=== PATIENT | female | born 1940 | race Caucasian/White ===

== ENCOUNTER → 2018-03-19 08:44 | Outpatient (CLI) | payer MEDICARE, BC, SELFPAY | PROVIDERS: Visit Provider Internal Medicine Cardiovascular Disease | DX: I35.8 Other nonrheumatic aortic valve disorders (principal); E78.5 Hyperlipidemia, unspecified | CPT/HCPCS: 93306 ==

== ENCOUNTER → 2019-05-07 | Outpatient (CLI) | payer MEDICARE, BC, SELFPAY ==
[2018-03-11 09:06] VITALS: BMI 26.7
[2019-04-21 15:03] VITALS: BMI 26.7
[2019-05-07 09:24] LABS: AST(SGOT) 20 U/L (15-37); Alanine Aminotransfer ALT/SGPT 23 U/L (13-56); Albumin, Serum 3.7 g/dL (3.2-5.0); Alkaline Phosphatase 56 U/L (45-117); Bilirubin, Direct 0.14 mg/dL (0.00-0.30); Cholesterol 233 mg/dL (200); Globulin 3.3 g/dL (2.2-4.2); High Density Lipoprotein 87 mg/dL; Triglycerides 85 mg/dL; Very Low Density Lipoprotein 17 mg/dL (5-40)
== END | disposition home or self-care (01) ==
PROVIDERS: Referring Provider Internal Medicine Cardiovascular Disease; Visit Provider Internal Medicine Cardiovascular Disease
DX: E78.5 Hyperlipidemia, unspecified (principal)
CPT/HCPCS: 36415; 80061; 80076

== ENCOUNTER 2019-09-12 18:34 | Observation (INO) | payer MEDICARE, BC, SELFPAY ==
[2019-04-21 15:03] VITALS: BMI 26.7
[2019-09-12 18:35] VITALS: BP 154/94; PULSE 74; RESP 16; TEMP 36.6; O2SAT 98; BMI 21.4
--- NOTE | 2019-09-12 19:17 | CT_ITS ---
STUDY: CT BRAIN WITHOUT CONTRAST REASON FOR EXAM: Female, 79 years old. UNSTEADY GAIT/METALLIC TASTE IN MOUTH RADIATION DOSAGE (If Supplied By Facility): CTDIvol = ( 44.99 ) mGy, DLP = ( 745.49 ) mGycm TECHNIQUE: Transaxial CT imaging of the brain was performed without administration of intravenous contrast material. Individualized dose optimization techniques were used for this CT. COMPARISON: No relevant priors. FINDINGS: Normal soft tissue structures. Normal calvarium. There is mild cerebral atrophy with widening of the extra-axial spaces and ventricular dilatation. Normal white matter tracts of the cerebral hemispheres. Normal basal ganglia and thalami. Normal brainstem. Normal cerebellum. There is no intracranial hemorrhage. There are no findings of an acute ischemic infarction. Normal visualized paranasal sinuses. CT/Brain/Head without Contrast IMPRESSION: Chronic involutional changes of the brain. Electronically Signed: Jean Draper MD at 19:54 EST , Service support ,
--- NOTE | 2019-09-12 19:18 | EKG12_ITS ---
Test Reason : DYSRHYTHMIA Blood Pressure : / mmHG Vent. Rate : 065 BPM Atrial Rate : 065 BPM P-R Int : 132 ms QRS Dur : 102 ms QT Int : 440 ms P-R-T Axes : 075 027 033 degrees QTc Int : 457 ms Normal sinus rhythm Possible Left atrial enlargement Nonspecific ST abnormality Abnormal ECG Confirmed by SUN ACOSTA ([id number]), rewrite editor GIANNA MELO ([id number] on 09/15/2019 3:37:41 PM Referred By: MILO Confirmed By:SUN ACOSTA
--- NOTE | 2019-09-12 19:21 | RAD_ITS ---
STUDY: X-RAY CHEST REASON FOR EXAM: Female, 79 years old. Dizziness. TECHNIQUE: Single AP portable view of the chest. COMPARISON: Previous study of September 09, 2014 FINDINGS: The lungs are clear and expanded. There is no demonstrated pleural abnormality. Normal size heart. Normal mediastinum and andres. Normal visualized pulmonary arteries. Normal visualized aortic arch and descending thoracic aorta. Normal visualized thoracic spine. Normal visualized ribs, clavicles, and shoulders. There is no demonstrated abnormality of the visualized soft tissue structures of the upper abdomen. RAD/Chest 1 View (Portable) IMPRESSION: Normal x-ray examination of the chest. Electronically Signed: Jean Draper MD at 19:48 EST , Service support ,
--- NOTE | 2019-09-12 19:47 | ED.DCSUM_ITS ---
History of Present Illness Chief Complaint: Dizziness Informant: Patient, Family Onset: Days Context: Gradual Onset Timing: Intermittent Narrative: Patient is a 79-year-old female with history of hyperlipidemia presenting with intermittent episodes of dizziness. Patient states her symptoms started earlier this week, about 4 to 5 days ago. She states especially in the morning she has been feeling dizzy. She states she feels unsteady on her feet. Patient states it does not feel like vertigo or like she is going to pass out. She states that her symptoms been worsening throughout the week. This morning she was so unsteady that she was running into the [place]inguez because she could not walk straight. Patient denies any double vision or vision changes. She denies any weakness, headache, shortness of breath or chest pain. She notes today she did have a metallic taste in her mouth around lunchtime. Patient denies any falls. She did have an episode of epigastric discomfort that felt like acid reflux. She had some mild associated nausea with this. Patient has had some fullness in her right ear. She states she is felt strange all day. She does live alone and was concerned so she came to the emergency room with her daughter. Patient has been drinking more water today to see if that would help with her symptoms. Patient notes that she does not regularly see a primary care doctor and has not for many years. Past Medical History - Allergies and Home Meds Allergies/Adverse Reactions: Allergies No Known Allergies Allergy (Verified 09/12/19 18:38) Primary Care Physician: Care Physician,No Primary [Primary Care Provider] - Past Medical History: - - Hyperlipidemia Surgical History: noncontributory Lives: Alone Smoking Status: Never smoker Review of Systems General: Reports: Malaise. Denies: Chills, Fever, Sweats Eyes: Denies: Visual changes - bilaterally, Diplopia ENT: Denies: Rhinorrhea, Sore throat Cardiovascular: Denies: Chest pain, Palpitations Respiratory: Denies: Dyspnea, Cough, Dyspnea on exertion Gastrointestinal: Reports: Nausea. Denies: Abdominal pain, Vomiting, Diarrhea, Melena, Hematochezia Genitourinary: Denies: Dysuria, Hematuria, Frequency Musculoskeletal: Denies: Back pain, Extremity Pain Skin: Denies: Rash, Wounds Neurological: Reports: - - Unsteadiness. Denies: Headache, Weakness, Numbness Physical Exam Vital Signs/Narrative: Vital Signs Temp Pulse Resp BP Pulse Ox 09/12/19 18:35 97.9 F 74 16 154/94 H 98 Inital Vital Signs reviewed: Yes General: Well nourished, Well developed, No Acute Distress Head: Normocephalic, Atraumatic Eyes: Perrl, EOMI, - - No nystagmus on exam ENT: Moist mucous membranes, No rhinorrhea, - - Right TM occluded with wax, left TM normal Neck: Supple, Nontender Cardiovascular: Regular rate, Regular rhythm, No murmurs Respiratory: No distress, CTA bilaterally, Chest nontender Abdomen: Soft, Nontender, Nondistended, Normal bowel sounds Back: Nontender, Normal Inspection Extremities: Nontender, No edema Skin: Normal color, No rash Neurological: Alert, Oriented x3, Cranial nerves II-XII grossly intact, Normal Strength, Normal Sensation, - - Normal [id number]. Negative for: Left side facial droop, Right side facial droop Psychological: Normal affect, Normal Mood Diagnostic/Tx/Re-eval Chest X-Ray - ED: 1 View, Read by ED Physician, Read by Radiologist, No Acute Disease Clinical Impression(s) from Imaging Studies Brain CT 09/12/19 19:17 IMPRESSION: Chronic involutional changes of the brain. Electronically Signed: Jean Draper MD at 19:54 EST , Service support , Chest X-Ray 09/12/19 19:21 IMPRESSION: Normal x-ray examination of the chest. Electronically Signed: Jean Draper MD at 19:48 EST , Service support , Laboratory Data 09/12/19 09/12/19 09/12/19 19:21 19:37 19:37 WBC 6.1 RBC 4.47 Hgb 13.3 Hct 40.3 MCV 90.2 MCH 29.8 MCHC 33.0 RDW Std Deviation 43.1 RDW Coeff of Joshua 13.0 Plt Count 247 MPV 9.7 Immature Gran % (Auto) 0.300 Neut % (Auto) 69.5 Lymph % (Auto) 25.1 [place] % (Auto) 3.9 Eos % (Auto) 0.7 Baso % (Auto) 0.5 Absolute Neuts (auto) 4.3 Absolute Lymphs (auto) 1.54 Nucleated RBC % 0 Sodium 140 Potassium 4.0 Chloride 108 H Carbon Dioxide 28.0 Anion Gap 4 L BUN 12 Creatinine 0.77 Estim Creat Clear Calc 46.77 Est GFR (MDRD) Af Amer 93 Est GFR (MDRD) Non-Af 77 BUN/Creatinine Ratio 15.5 Glucose 108 H Calcium 9.2 Troponin I < 0.015 Urine Color Straw Urine Clarity Clear Urine pH 7.0 Ur Specific [place] 1.010 Urine Protein Negative Urine Glucose (UA) Normal Urine Ketones Negative Urine Occult Blood Negative Urine Nitrite Negative Urine Bilirubin Negative Urine Urobilinogen Normal Ur Leukocyte Esterase Negative Urine RBC 0 SEEN Urine WBC 0 SEEN Ur Squamous Epith Cells 0-5 SEEN Urine Bacteria 0 SEEN Urine Mucus 0 SEEN - Rhythm Strip Rhythm Strip: Sinus Rhythm Rate: 65 Ectopy: None - EKG Initial EKG Interpretation: Sinus Rhythm, - - Normal sinus rhythm at a rate of 65 Normal intervals Normal axis Normal ST segments, nonspecific T wave inversion in lead III - Medical Decision Making Patient is evaluated for intermittent episodes of unsteadiness. Physical exam is benign. She is currently asymptomatic. Her symptoms almost sound more like vertigo. I cannot truly tell this is peripheral versus central. Patient does have history of hyperlipidemia but it is hypertensive in the emergency room. She does have a neurologic exam that is normal. Her NIH is 0. Regardless patient would not be a candidate for TPA because of low NIH as well as timing of her symptoms. Patient does have a cerumen impaction on the right side which is cleared out. Patient remains asymptomatic after this. Because of patient's adv anced age and stroke risk factors she will be admitted for further rule out of central cause of vertigo. Patient is agreeable with this plan. In addition she will be monitored further for evaluation of her unsteadiness and difficulty walking that seems to occur in the mornings. Patient is given a dose of aspirin in the emergency room. ED Disposition - Plan for ED Patient: Disposition: Acute [facility] Diagnosis: Dizziness Referrals: Care Physician,No Primary [Primary Care Provider] -
[2019-09-12 19:49] LABS: Bacteria 0 SEEN /hpf (None Seen); Mucous, Urine 0 SEEN /hpf (<or=2+); Red Blood Cells-Urine 0 SEEN /hpf (0-5); White Blood Cells 0 SEEN /hpf (0-5)
[2019-09-12 19:50] LABS: Absolute Lymphocyte Count 1.54 X10^3/uL (0.83-4.51); Absolute Neutrophil Count 4.3 X10^3/uL (2.0-7.7); Basophil# 0.03 X10^3/uL; Basophil% 0.5 % (0-1); Eosinophil# 0.04 X10^3/uL; Eosinophils% 0.7 % (0-5); Hematocrit 40.3 % (37-47); Hemoglobin 13.3 g/dL (12.0-15.0); Lymphocyte # 1.54 X10^3/ul (4.0); Lymphocyte % 25.1 % (19-41); Mean Corpuscular Hgb 29.8 pg (27.0-32.0); Mean Corpuscular Volume 90.2 fL (81-99); Mean Platelet Vol. 9.7 fl (6.2-12.0); Monocyte# 0.24 X10^3/uL; Monocyte% 3.9 % (0-10); NRBC Flagged by Analyzer 0 % (0-5); Neutrophil # 4.27 X10^3/uL (2.7-7.7); Neutrophil % 69.5 % (47-70); Platelet Count 247 K/mm3 (150-450); RBC Distribution Width SD 43.1 fl (35.1-43.9); Red Blood Count 4.47 M/mm3 (4.2-5.4); White Blood Count 6.1 K/mm3 (4.4-11.0)
[2019-09-12 19:52] LABS: Color, Urine Straw (Yellow); Glucose, Dipstick Normal (Normal); Ketone-Dipstick Negative (Negative); Leukocyte Esterase-Dipstick Negative /ul (Negative); Nitrite-Dipstick Negative (Negative); Occult Blood-Urine Negative /ul (Negative); Protein-Dipstick Negative (Negative); Urine Bilirubin Dipstick Negative (Negative); Urine Clarity Clear (Clear); Urine Urobilinogen Normal (Normal)
[2019-09-12 20:05] LABS: Squamous Epithelial Cells - UA 0-5 SEEN /hpf (5-10)
[2019-09-12 20:09] LABS: Anion Gap 4 (5-15); BUN 12 mg/dL (7-18); BUN/Creat Ratio 15.5 RATIO (10-20); Calcium,Total 9.2 mg/dL (8.5-10.1); Chloride 108 mmol/L (98-107); Creatinine, Serum 0.77 mg/dL (0.55-1.02); EST Glomerular Filtration Rate 77 mL/min (>60); Est Glom Filt Rate - Afr Amer 93 mL/min (>60); Estimated Creatinine Clearance 46.77 ml/min; Glucose 108 mg/dL (74-106); Sodium Level 140 mmol/L (136-145)
--- NOTE | 2019-09-12 21:12 | PCM.HP.STD ---
Problem List (1) Dizziness Status: Acute (2) Valvular heart disease Status: Chronic (3) GERD (gastroesophageal reflux disease) Status: Chronic Qualifiers: Esophagitis presence: esophagitis presence not specified Qualified Code(s): K21.9 - Gastro-esophageal reflux disease without esophagitis (4) Hyperlipidemia Status: Chronic Qualifiers: Hyperlipidemia type: unspecified Qualified Code(s): E78.5 - Hyperlipidemia, unspecified History of Present Illness Date of Admission: 09/12/19 Chief Complaint: Lightheadedness The patient is a 79 y/o F w/ PMHx: HLD, Valvular Heart Disease who presents to the [facility] ED on 09/12/19 with history of intermittent episodes of dizziness, lightheadedness, not specifically room spinning sensation, several months prior with intermittent episodes specifically noting that they are worse in the morning with a feeling of imbalance and unsteadiness with no specific really related to headache but feeling of a fullness in her right ear upon specific day of ED presentation as well as a single episode prior to ED presentation of dyspepsia with nausea but single episode. She has not seen a physician in several years. Work-up in the ED included T 97.9, heart rate 74, BP 154/94, respiratory rate 16, 98% on room air, CBC unremarkable, BMP with chloride 108, BUN/creatinine 12/0.77, glucose 108, troponin less than 0.015, urinalysis unremarkable, EKG with SR without acute evidence of ischemia, chest x-ray with no acute cardiopulmonary findings, CT brain with chronic involutional changes with no acute intracranial findings. ED evaluation included significant cerumen noted in the right ear canal with improvement of fullness following removal. In the ED patient was administered aspirin therapy. Upon hospitalist evaluation for admission patient with no current lightheadedness or dizziness sensation. 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 Nonrheumatic aortic (valve) insufficiency (Acute) I35.1 Hyperlipidemia (Acute) E78.5 Premature ventricular contraction (Acute) I49.3 Premature atrial contractions (Acute) I49.1 Allergies No Known Allergies Allergy (Verified 09/12/19 18:38) Home Medications: Ambulatory Orders Medication Instructions Recorded omega 9-ewd-gtf-fish oil 1,000 mg 1 cap PO DAILY cap 03/06/18 (120 mg-180 mg) capsule Ascorbic Acid [Vitamin C] 500 mg PO DAILY@0800 09/12/19 Calcium (Elemental) [[place] 500] 500 mg PO DAILY@0809/12/19 Surgical History: Surgical History (Last Reviewed 04/21/19 @ 14:59 by Melodie Mcintosh) Cataract extraction status of right eye Z98.41 Surgical History: no surgical history Psychiatric History: No pertinent psych hx [employer] 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 Paternal Family History: Family History (Last Reviewed 04/21/19 @ 14:59 by Melodie Mcintosh) Father CAD (coronary artery disease) Myocardial infarction Hypertension History Items: High Cholesterol, Heart Disease, Hypertension, - - Patient notes a paternal family history of heart disease, status post DC, at age 89. Review of Systems Constitutional: Reports: Fatigue. Denies: Anorexia, Chills, Fever, Malaise, Weakness, Weight Change HEENT: Denies: Head Aches, Sinus Congestion, Sinus Drainage Cardiovascular: Reports: Light Headedness. Denies: Chest Pain, Chest Pressure, Chest Tightness, Orthopnea, Palpitations, Syncope Respiratory: Denies: Cough, Shortness of Breath, Shortness of breath at rest, Shortness of breath upon exertion, Sputum production Gastrointestinal: Reports: Dyspepsia, Nausea. Denies: Abdominal Pain, Vomiting Genitourinary: Denies: Dysuria Musculoskeletal: Reports: Joint Pain. Denies: Joint Tenderness Skin: Denies: Rash, Wounds Neurological: Reports: Balance problems. Denies: Focal weakness, Numbness, Tingling Psychiatric: Denies: Anxiety, Depression, Homicidal Ideations, Suicidal Ideations Hematologic/ Lymphatic: Reports: Easy Bruising, Easy Bleeding VTE Information - Inpt Only VTE Present on Admission: No VTE Mechan Device Prophylaxis: SCD's VTE Pharm Prophylaxis ordered?: Yes Patient Problems: Active and Suspected Problems (Last Reviewed 04/21/19 @ 14:59 by Melodie Mcintosh) Dizziness (Acute) Subjective: Seated upright in ED bed, mildly fatigued appearance, no acute distress, no reported current lightheadedness or dizziness. Objective: Physical Examination: General: awake, alert, oriented x 3 and cooperative, seated upright in the ED bed in no apparent distress. Skin: normal color, turgor, no icterus, cyanosis. HEENT: AT/NC, EOMI, PERRLA, MMM, no carotid bruits or JVD noted. Lungs: CTA bilaterally, moderate effort, mild decrease BL bases, no rales, ronchi or wheezing. Heart: Regular rate and rhythm; no gallop, rub audible. Abdomen: soft, NTTP, ND, normal BS, no HSM. Extremities: no cyanosis, clubbing, or edema. Neurological: patient awake, alert, oriented x 3; cognitive function intact; pupils equally reactive to light and accomodation; cranial nerves II-XII grossly normal, moving all 4 extremities, no focal deficits, strength preserved, no current lightheadedness or dizziness complaint, [id number] and kfax-ge-[id number] appropriate, negative Babinski, sensation intact. Psychiatric: affect appears normal, no acute evidence of depressive or anxiety feelings. - Physical Exam Vitals/I&O's: Vital Signs Temp Pulse Resp BP Pulse Ox 97.9 F 74 16 154/94 H 98 09/12/19 18:35 09/12/19 18:35 09/12/19 18:35 09/12/19 18:35 09/12/19 18:35 Oxygen Delivery Method Room Air Weight: 140 lb 14.006 oz Body Mass Index (BMI) 21.4 Laboratory Results 09/12/19 19:21: Urine Color Straw, Urine Clarity Clear, Urine pH 7.0, Ur Specific [place] 1.010, Urine Protein Negative, Urine Glucose (UA) Normal, Urine Ketones Negative, Urine Occult Blood Negative, Urine Nitrite Negative, Urine Bilirubin Negative, Urine Urobilinogen Normal, Ur Leukocyte Esterase Negative, Urine RBC 0 SEEN, Urine WBC 0 SEEN, Ur Squamous Epith Cells 0-5 SEEN, Urine Bacteria 0 SEEN, Urine Mucus 0 SEEN 09/12/19 19:37: WBC 6.1, RBC 4.47, Hgb 13.3, Hct 40.3, MCV 90.2, MCH 29.8, MCHC 33.0, RDW Std Deviation 43.1, RDW Coeff of Joshua 13.0, Plt Count 247, MPV 9.7, Immature Gran % (Auto) 0.300, Neut % (Auto) 69.5, Lymph % (Auto) 25.1, [place] % (Auto) 3.9, Eos % (Auto) 0.7, Baso % (Auto) 0.5, Absolute Neuts (auto) 4.3, Absolute Lymphs (auto) 1.54, Nucleated RBC % 0 09/12/19 19:37: Sodium 140, Potassium 4.0, Chloride 108 H, Carbon Dioxide 28.0, Anion Gap 4 L, BUN 12, Creatinine 0.77, Estim Creat Clear Calc 46.77, Est GFR (MDRD) Af Amer 93, Est GFR (MDRD) Non-Af 77, BUN/Creatinine Ratio 15.5, Glucose 108 H, Calcium 9.2, Troponin I < 0.015 Assessment/Plan All Active Problems (Last Reviewed 04/21/19 @ 14:59 by Melodie Mcintosh) Dizziness (Acute) Aortic valve prolapse (Acute) Nonrheumatic aortic valve disorder (Acute) Nonrheumatic aortic (valve) insufficiency (Acute) Premature ventricular contraction (Acute) Premature atrial contractions (Acute) The patient is a 79 y/o F w/ PMHx: HLD, Valvular Heart Disease who presents to the [facility] ED on 09/12/19 with history of intermittent episodes of dizziness, lightheadedness, not specifically room spinning sensation, several months prior with intermittent episodes specifically noting that they are worse in the morning with a feeling of imbalance and unsteadiness with no specific really related to headache but feeling of a fullness in her right ear upon specific day of ED presentation as well as a single episode prior to ED presentation of dyspepsia with nausea but single episode. 1. Intermittent dizziness, imbalance and unsteady gait concerning for possible Posterior CVA: Will admit to PCU, will obtain MRI Brain, MRA Head and Neck, ECHO, PT/OT/Speech/Nutrition evaluation per protocol. Given timeline will continue to monitor BP and if remains elevated would initiate regimen to maintain goal, maintain on asa, consider statin addition pending AM FLP, fall precautions. FLP, HgbA1c, Mag, TSH pending. If MRI of the brain unremarkable may need to potentially pursue inner ear etiology. 2. Hyperlipidemia: We will hold patient fish oil, obtain AM FLP, consider statin therapy addition if appropriate. 3. Valvular heart disease: Status post echocardiogram 02/2018 with noted normal LV systolic function, EF 60%, trivial MVI, mild TBI, mild prolapse of the aortic valve, mild AV insufficiency, RVSP 29 mmHg. 4. GERD: Initiate famotidine given symptom complaint. 5. DVT prophylaxis: SCDs, Lovenox. Code Visit OBSV E&M: 69197 Initial observation care L3
[2019-09-12 21:14] VITALS: BP 158/75; PULSE 64; RESP 19; O2SAT 96
[2019-09-12] MEDS: Aspirin 325 MG Tablet PO (21:55)
[2019-09-12 21:56] VITALS: BP 148/69; PULSE 71; RESP 16; O2SAT 94
[2019-09-12 22:53] VITALS: BP 131/75; PULSE 68; RESP 16; TEMP 36.6; O2SAT 98; BMI 26.8
[2019-09-12 23:00] VITALS: PULSE 65
[2019-09-12 23:05] LABS: Magnesium 2.3 mg/dL (1.6-2.6)
[2019-09-12] MEDS: 0.9% Normal Saline 1,000 ML 100 ML IV (23:36)
[2019-09-12] MEDS: Famotidine 20 MG Tablet PO (23:36)
[2019-09-13] VITALS (8 sets, daily range): BP systolic 128–134; BP diastolic 61–70; PULSE 59–70; RESP 16–18; TEMP 36.5–36.7; O2SAT 95–99; BMI 26.8
[2019-09-13 08:03] LABS: Absolute Lymphocyte Count 2.01 X10^3/uL (0.83-4.51); Absolute Neutrophil Count 3.3 X10^3/uL (2.0-7.7); Basophil# 0.03 X10^3/uL; Basophil% 0.5 % (0-1); Eosinophil# 0.15 X10^3/uL; Eosinophils% 2.5 % (0-5); Hematocrit 35.5 % (37-47); Hemoglobin 11.7 g/dL (12.0-15.0); Lymphocyte # 2.01 X10^3/ul (4.0); Mean Corpuscular Hgb 29.8 pg (27.0-32.0); Mean Corpuscular Volume 90.3 fL (81-99); Mean Platelet Vol. 10.5 fl (6.2-12.0); Monocyte# 0.44 X10^3/uL; Monocyte% 7.4 % (0-10); NRBC Flagged by Analyzer 0 % (0-5); Neutrophil # 3.27 X10^3/uL (2.7-7.7); Neutrophil % 55.4 % (47-70); Platelet Count 221 K/mm3 (150-450); RBC Distribution Width CV 13.2 % (11.6-14.6); RBC Distribution Width SD 43.6 fl (35.1-43.9); Red Blood Count 3.93 M/mm3 (4.2-5.4); White Blood Count 5.9 K/mm3 (4.4-11.0)
[2019-09-13 08:35] LABS: Anion Gap 5 (5-15); BUN 12 mg/dL (7-18); BUN/Creat Ratio 15.7 RATIO (10-20); Calcium,Total 8.6 mg/dL (8.5-10.1); Chloride 111 mmol/L (98-107); Cholesterol 229 mg/dL (200); Creatinine, Serum 0.76 mg/dL (0.55-1.02); EST Glomerular Filtration Rate 78 mL/min (>60); Est Glom Filt Rate - Afr Amer 94 mL/min (>60); Glucose 80 mg/dL (74-106); High Density Lipoprotein 79 mg/dL; Potassium 3.6 mmol/L (3.5-5.1); Sodium Level 141 mmol/L (136-145); Thyroid Stim Hormone (TSH) 3.21 uIU/mL (0.358-3.74); Triglycerides 58 mg/dL; Very Low Density Lipoprotein 12 mg/dL (5-40)
[2019-09-13 09:39] LABS: Hemoglobin A1c 5.8 % (4.2-6.3)
[2019-09-13] MEDS: Aspirin 81 MG TAB.CHEW PO (10:42)
[2019-09-13] MEDS: Famotidine 20 MG Tablet PO (10:42)
[2019-09-13] MEDS: 0.9% Normal Saline 1,000 ML 100 ML IV (10:42)
--- NOTE | 2019-09-13 13:36 | DCINST_ITS ---
- Discharge Diagnoses Current Active Problems: Current Active and Chronic Problems (Last Reviewed 04/21/19 @ 14:59 by Melodie Mcintosh) Dizziness (Acute) Valvular heart disease (Chronic) GERD (gastroesophageal reflux disease) (Chronic) You will use the following diet at home:: No restrictions Your food should be the consistency of: Regular Your liquids should be the consistency of: Regular/Thin Discharge Activity: Return to Normal Activity Weight Bearing Status: Full weight bearing Allergies/Adverse Reactions: Allergies No Known Allergies Allergy (Verified 09/12/19 18:38) Medications to take at Discharge Ascorbic Acid [Vitamin C] 500 mg PO DAILY@0800 09/12/19 Calcium (Elemental) [[place] 500] 500 mg PO DAILY@0809/12/19 Primary Care Physician: Care Physician,No Primary [Primary Care Provider] - Please follow up with your Primary Care Physician in: as directed Test Results: Test results from this visit will be discussed in further detail at your follow- up appointment, if applicable.
--- NOTE | 2019-09-13 13:42 | PCA ---
List of area PCPs provided to patient with discharge paperwork.
--- NOTE | 2019-09-13 17:28 | DS.PCM_ITS ---
Discharge Date and Diagnosis Date of Admission: 09/12/19 Date of Discharge: 09/13/19 - Primary Discharge Diagnosis #1 vertigo-etiology unknown #2 valvular heart disease #3 hyperlipidemia - Secondary Discharge Diagnosis Chronic Problems (Last Reviewed 04/21/19 @ 14:59 by Melodie Mcintosh) Valvular heart disease (Chronic) GERD (gastroesophageal reflux disease) (Chronic) Hyperlipidemia (Chronic) Hospital Course and Treatment Imaging Results: 09/13/19 22:49 Brain without Contrast [MRI] Stat MRA Head ONLY without Contrast [MRI] Stat MRA Neck without Contrast [MRI] Stat Operations: None Procedures: None Summary of Care Provided: The patient is a 79 year old F was seen in the emergency room at [facility] with chief complaint of episodes of intermittent dizziness and lightheadedness. Patient also complained of fullness in her right ear. Evaluation in the emergency room noted that there was significant amount of cerumen in the right ear canal and this was removed with resolution of the patient's feeling of fullness in her right ear. Patient's labs were unremarkable, CT of the brain showed chronic involutional changes with no acute intracranial findings. Patient was asymptomatic at the time of her examination in the emergency room. Patient was placed into observation status on PCU, she underwent an MRA of her head and neck as well as an MRI of the brain-these imaging studies were all unremarkable. Patient did not have symptoms of lightheadedness or dizziness while in the hospital. On 09/13/2019, patient was was seen and examined: On examination she appeared in good health and spirits. Vital signs as documented. Skin warm and dry and without overt rashes. Neck without JVD. Lungs clear. Heart exam notable for regular rhythm, normal sounds and absence of murmurs, rubs or gallops. Abdomen unremarkable and without evidence of organomegaly, masses, or abdominal aortic enlargement. Extremities nonedematous. Neuro: Cranial nerves II through XII are grossly intact, no focal motor deficits were noted, sensation to light touch and pinprick is intact. Psych: Patient is alert and oriented x3, she does not appear anxious or depressed I advised the patient to get a flu shot, she declined at this time, I also advised the patient to follow-up with her family practitioner who she has not seen in quite a while. I advised the patient to stop her use of fish oil as it is not a treatment for any of her medical problems. On 09/13/2019, patient was seen and examined and discharged home in stable condition. - Physical Exam Vitals/I&O's: Vital Signs Temp Pulse Resp BP Pulse Ox 98.1 F 70 16 133/61 H 95 09/13/19 13:51 09/13/19 13:51 09/13/19 13:51 09/13/19 13:51 09/13/19 13:51 Oxygen Delivery Method Room Air Weight: 62.3 kg Body Mass Index (BMI) 26.8 Intake and Output for Last 24 Hours 09/11/19 09/12/19 09/13/19 23:59 23:59 23:59 Intake Total 120 / 120 1620.00 / 1620.00 Balance 120 / 120 1620.00 / 1620.00 Laboratory Results 09/12/19 19:21: Urine Color Straw, Urine Clarity Clear, Urine pH 7.0, Ur Specific House 1.010, Urine Protein Negative, Urine Glucose (UA) Normal, Urine Ketones Negative, Urine Occult Blood Negative, Urine Nitrite Negative, Urine Bilirubin Negative, Urine Urobilinogen Normal, Ur Leukocyte Esterase Negative, Urine RBC 0 SEEN, Urine WBC 0 SEEN, Ur Squamous Epith Cells 0-5 SEEN, Urine Bacteria 0 SEEN, Urine Mucus 0 SEEN 09/12/19 19:37: WBC 6.1, RBC 4.47, Hgb 13.3, Hct 40.3, MCV 90.2, MCH 29.8, MCHC 33.0, RDW Std Deviation 43.1, RDW Coeff of Joshua 13.0, Plt Count 247, MPV 9.7, Immature Gran % (Auto) 0.300, Neut % (Auto) 69.5, Lymph % (Auto) 25.1, [place] % (Auto) 3.9, Eos % (Auto) 0.7, Baso % (Auto) 0.5, Absolute Neuts (auto) 4.3, Absolute Lymphs (auto) 1.54, Nucleated RBC % 0 09/12/19 19:37: Sodium 140, Potassium 4.0, Chloride 108 H, Carbon Dioxide 28.0, Anion Gap 4 L, BUN 12, Creatinine 0.77, Estim Creat Clear Calc 46.77, Est GFR (MDRD) Af Amer 93, Est GFR (MDRD) Non-Af 77, BUN/Creatinine Ratio 15.5, Glucose 108 H, Calcium 9.2, Troponin I < 0.015 09/12/19 19:37: Magnesium 2.3 09/13/19 06:37: WBC 5.9, RBC 3.93 L, Hgb 11.7 L, Hct 35.5 L, MCV 90.3, MCH 29.8, MCHC 33.0, RDW Std Deviation 43.6, RDW Coeff of Joshua 13.2, Plt Count 221, MPV 10.5, Immature Gran % (Auto) 0.200, Neut % (Auto) 55.4, Lymph % (Auto) 34.0, [place] % (Auto) 7.4, Eos % (Auto) 2.5, Baso % (Auto) 0.5, Absolute Neuts (auto) 3.3, Absolute Lymphs (auto) 2.01, Nucleated RBC % 0 09/13/19 06:37: Sodium 141, Potassium 3.6, Chloride 111 H, Carbon Dioxide 25.0, Anion Gap 5, BUN 12, Creatinine 0.76, Estim Creat Clear Calc 33.30, Est GFR (MDRD) Af Amer 94, Est GFR (MDRD) Non-Af 78, BUN/Creatinine Ratio 15.7, Glucose 80, Calcium 8.6, Triglycerides 58, Cholesterol 229 H, LDL Cholesterol 138 H, VLDL Cholesterol 12, HDL Cholesterol 79, TSH 3.21 09/13/19 06:37: Hemoglobin A1c 5.8 Discharge Activity: Return to Normal Activity Weight Bearing Status: Full weight bearing Home Medications: Medications to take at Discharge Ascorbic Acid [Vitamin C] 500 mg PO DAILY@79909/12/19 Calcium (Elemental) [[place] 500] 500 mg PO DAILY@79909/12/19 Primary Care Physician: Care Physician,No Primary [Primary Care Provider] - Please follow up with your Primary Care Physician in: as directed Disposition: Home Minutes spent on discharge:: 30 Patient Condition:: Stable Medical Necessity - Tobacco Use Smoking Status: Never smoker Tobacco Use: Non-smoker Meaningful Use Info Meaningful Use Diagnoses (Choose all that apply): None applicable Code Visit OBSV E&M: 63735 Observation care discharge
--- NOTE | 2019-09-13 22:49 | MRI_ITS ---
STUDY: MRA OF THE HEAD WITHOUT CONTRAST REASON FOR EXAM: Female, 79 years old. Dizziness x 1 day TECHNIQUE: 3-D [id number]-yplbmj (TOF) imaging was performed with MIPs. The study was performed unenhanced. COMPARISON: None. FINDINGS: Normal bilateral petrous carotid arteries. Normal right cavernous carotid artery with a normal supraclinoid bifurcation. Normal left cavernous carotid artery with a normal supraclinoid bifurcation. Normal right A1 segment of the anterior cerebral artery. Normal left A1 segment of the anterior cerebral artery. Normal intact anterior communicating artery (ACOM). Normal bilateral A2 segments of the anterior cerebral arteries. Normal right M1 and M2 segments of the middle cerebral arteries, with a normal M1 bifurcation. Normal left M1 and M2 segments of the middle cerebral arteries, with a normal M1 bifurcation. Normal right posterior communicating artery (PCOM). Normal left posterior communicating artery (PCOM). Normal bilateral vertebral arteries. Hypoplastic intradural segment of the right vertebral artery, more so distal to the origin of the right PICA. Normal basilar artery with a normal basilar bifurcation. The visualized bilateral superior cerebellar (SCA) arteries are normal. Normal bilateral P1, P2 and visualized P3 segments of the posterior cerebral arteries. There is no demonstrated aneurysm of the hop[place] of [place]. There is no major vessel occlusion or hemodynamically significant stenosis. There is no demonstrated abnormality of the visualized brain. MRI/MRA Head ONLY without Contrast IMPRESSION: Normal MRA of the head Electronically Signed: Collin Mays MD at 13:13 EST , Service support ,
--- NOTE | 2019-09-13 22:49 | MRI_ITS ---
STUDY: MRA NECK WITHOUT CONTRAST REASON FOR EXAM: Female, 79 years old. Dizziness x 1 day TECHNIQUE: Source images were obtained, MIPs were performed. The study was performed unenhanced. COMPARISON: None. FINDINGS: RIGHT CAROTID ARTERIES: Normal right common carotid artery (CCA). Normal right internal carotid bulb. Normal origin of the right internal carotid (ICA) artery bulb and proximal internal carotid artery without a hemodynamically significant stenosis. Normal visualized cervical portion of the right internal carotid artery. Normal origin of the right external carotid artery (ECA). LEFT CAROTID ARTERIES: Normal left common carotid artery (CCA). Normal left internal carotid bulb. Normal origin of the left internal carotid (ICA) artery bulb and proximal internal carotid artery without a hemodynamically significant stenosis. Normal visualized cervical portion of the left internal carotid artery. Normal origin of the left external carotid artery (ECA). VERTEBRAL ARTERIES: Normal antegrade flow within the bilateral vertebral artery without a hemodynamically significant stenosis. The left vertebral artery is dominant. MRI/MRA Neck without Contrast IMPRESSION: Normal bilateral cervical carotid and vertebral arteries. Electronically Signed: Collin Mays MD at 13:14 EST , Service support ,
--- NOTE | 2019-09-13 22:49 | MRI_ITS ---
STUDY: MRI BRAIN WITHOUT CONTRAST REASON FOR EXAM: Female, 79 years old. Dizziness x1 day. TECHNIQUE: Standardized multiplanar fat and water weighted pulse sequences were obtained. COMPARISON: CT head without contrast 09/12/2019. FINDINGS: No restricted diffusion to suspect acute or subacute infarct. No remote cortical-based ischemic infarct. No old lacunar infarct. Normal size of the ventricles and extra-axial spaces for the patient''s age. Normal white matter tracts of the supratentorial brain. Normal bilateral basal ganglia. Normal thalami. There is no extra-axial fluid accumulation. Normal flow voids within the major intracranial circulation suggesting patency by spin echo criteria. Normal sella turcica, pituitary gland, infundibular stalk, optic chiasm and hypothalamus. Normal tectal plate and pineal gland. Normal midbrain, brady and medulla. Normal cerebellum. Normal basal cisterns. Normal bilateral temporal bones. Normal bilateral internal auditory canals. No demonstrated orbital abnormality, within the constraints of a routine brain study. Normal visualized paranasal sinuses. Normal calvarium and skull base. Normal visualized soft tissue structures. Normal visualized upper cervical spine. MRI/Brain without Contrast IMPRESSION: Normal unenhanced MRI of the brain. Electronically Signed: Collin Mays MD at 13:11 EST , Service support ,
== END 2019-09-13 13:37 | disposition home or self-care (01) ==
LOC: ED 21:47 → PCU 21:52
PROVIDERS: Admitting Provider Family Medicine; Emergency Provider Emergency Medicine; Visit Provider Internal Medicine
DX: R42 Dizziness and giddiness (principal); E78.5 Hyperlipidemia, unspecified; H61.21 Impacted cerumen, right ear; K21.9 Gastro-esophageal reflux disease without esophagitis; R94.31 Abnormal electrocardiogram [ECG] [EKG]; R11.0 Nausea; R29.700 NIHSS score 0; R26.2 Difficulty in walking, not elsewhere classified; R53.83 Other fatigue
CPT/HCPCS: 70450; 70544; 70547; 70551; 71045; 80048; 80061; 81001; 83036; 83735; 84443; 84484; 85025; 93005; 94762; 96360; 96361; 97161; 97166; 99218; 99251; 99285; J7030; A4216; G0378; G0463

== ENCOUNTER → 2020-04-15 09:46 | Outpatient (CLI) | payer MEDICARE, BC, SELFPAY ==
[2020-04-12 09:37] VITALS: BMI 26.8
[2020-04-15 10:42] LABS: AST(SGOT) 17 U/L (15-37); Alanine Aminotransfer ALT/SGPT 20 U/L (13-56); Albumin, Serum 3.7 g/dL (3.2-5.0); Alkaline Phosphatase 59 U/L (45-117); Bilirubin, Direct 0.15 mg/dL (0.00-0.30); Cholesterol 232 mg/dL (200); Globulin 3.4 g/dL (2.2-4.2); High Density Lipoprotein 91 mg/dL; Protein, Total 7.1 g/dL (6.4-8.2); Triglycerides 64 mg/dL; Very Low Density Lipoprotein 13 mg/dL (5-40)
== END ==
PROVIDERS: Referring Provider Internal Medicine Cardiovascular Disease; Visit Provider Internal Medicine Cardiovascular Disease
DX: E78.00 Pure hypercholesterolemia, unspecified (principal); I35.8 Other nonrheumatic aortic valve disorders; I35.1 Nonrheumatic aortic (valve) insufficiency; I49.1 Atrial premature depolarization; I49.3 Ventricular premature depolarization; E78.5 Hyperlipidemia, unspecified
CPT/HCPCS: 36415; 80061; 80076

== ENCOUNTER → 2020-11-10 08:56 | Outpatient (CLI) | payer MEDICARE, BC, SELFPAY ==
[2020-04-12 09:37] VITALS: BMI 26.8
[2020-11-10 10:27] LABS: AST(SGOT) 21 U/L (15-37); Alanine Aminotransfer ALT/SGPT 31 U/L (13-56); Albumin, Serum 3.8 g/dL (3.2-5.0); Alkaline Phosphatase 66 U/L (45-117); Bilirubin, Direct 0.18 mg/dL (0.00-0.30); Cholesterol 202 mg/dL (200); Globulin 3.4 g/dL (2.2-4.2); High Density Lipoprotein 101 mg/dL; Protein, Total 7.2 g/dL (6.4-8.2); Triglycerides 60 mg/dL; Very Low Density Lipoprotein 12 mg/dL (5-40)
== END ==
PROVIDERS: Referring Provider Internal Medicine Cardiovascular Disease; Visit Provider Internal Medicine Cardiovascular Disease
DX: E78.5 Hyperlipidemia, unspecified (principal)
CPT/HCPCS: 36415; 80061; 80076

== ENCOUNTER → 2021-02-25 10:58 | Outpatient (CLI) | payer MEDICARE, BC, SELFPAY ==
[2020-04-12 09:37] VITALS: BMI 26.8
--- NOTE | 2021-02-25 10:59 | ECHOD_ITS ---
Reason For Study: Murmur Procedure This was a 2D Doppler, Color Flow transthoracic echocardiogram. Exam performed in department. Left Ventricle Normal LV size. Left ventricular systolic function is normal. The estimated ejection fraction is 65 %. No evidence for diastolic dysfunction. No regional wall motion abnormalities noted. Right Ventricle Normal RV size. Normal systolic function. Atria Normal left atrium. Normal right atrium. No doppler evidence for ASD. Mitral Valve There is no mitral annular calcification. Normal mitral valve. Mild (1+) mitral valve insufficiency. Tricuspid Valve Normal tricuspid valve. Mild tricuspid valve insufficiency. Right ventricular systolic pressure estimated to be 25 mmHg. Aortic Valve Trisinus/trileaflet aortic valve. Equivocal prolapse of the aortic valve. Mild (1+) aortic valve insufficiency. Pulmonic Valve The pulmonic valve is not well visualized. Trivial eccentric pulmonic valve insufficiency. Great Vessels Normal sized aortic root. Pericardium/Pleural No pericardial effusion. MMode/2D Measurements & Calculations LVIDd: 4.1 cm IVSd: 0.82 cm Ao root diam: 2.8 cm LVIDs: 2.6 cm LVPWd: 0.91 cm LA dimension: 3.0 cm RVDd: 3.2 cm FS: 36.2 % LAV(MOD-bp): 31.9 ml LA A4 area: 13.3 cm2 RA A4 area: 11.5 cm2 LAV(MOD-bp) Indexed: 19.9 ml/m2 LAV(MOD-sp2): 33.5 ml LAV(MOD-sp4): 29.3 ml Time Measurements MV dec time: 0.18 sec Doppler Measurements & Calculations MV E max benjie: 63.1 cm/sec Lat Peak E' Benjie: 5.6 cm/sec Med Peak E' Benjie: 6.0 cm/sec MV A max benjie: 81.5 cm/sec E/E' lat: 11.4 E/E' med: 10.5 MV E/A: 0.77 MV V2 max: 74.2 cm/sec MV P1/2t max benjie: 58.0 cm/sec Ao V2 max: 114.7 cm/sec MV max P.2 mmHg MV P1/2t: 91.5 msec Ao max P.3 mmHg MV V2 mean: 37.9 cm/sec MV dec slope: 185.8 cm/sec2 MV mean P.68 mmHg MVA(P1/2t): 2.4 cm2 MV V2 VTI: 20.3 cm AI max benjie: 482.3 cm/sec LV V1 max: 77.4 cm/sec PA V2 max: 71.3 cm/sec AI max P.1 mmHg LV V1 max P.4 mmHg AI dec slope: 243.0 cm/sec2 AI P1/2t: 581.4 msec PI dec slope: 134.8 cm/sec2 TR max benjie: 232.5 cm/sec TR max P.6 mmHg ECHO/Echo Complete Interpretation Summary Left ventricular systolic function is normal. The estimated ejection fraction is 65 %. Mild (1+) mitral valve insufficiency. Mild tricuspid valve insufficiency. Equivocal prolapse of the aortic valve. Mild (1+) aortic valve insufficiency. Trivial eccentric pulmonic valve insufficiency. Right ventricular systolic pressure estimated to be 25 mmHg. No evidence for diastolic dysfunction. Ordering Physician: Allen Parker Referring Physician: Mai Couch Performed By: Sebas Malin RCS
== END ==
PROVIDERS: PCP Family Medicine; Referring Provider Internal Medicine Cardiovascular Disease; Visit Provider Internal Medicine Cardiovascular Disease
DX: I38 Endocarditis, valve unspecified (principal); I35.8 Other nonrheumatic aortic valve disorders; I35.1 Nonrheumatic aortic (valve) insufficiency; I49.1 Atrial premature depolarization; I49.3 Ventricular premature depolarization; E78.5 Hyperlipidemia, unspecified; R01.1 Cardiac murmur, unspecified
CPT/HCPCS: 93306

== ENCOUNTER → 2022-05-13 | Outpatient (CLI) | payer MEDICARE, SELFPAY ==
[2022-05-13 09:39] LABS: AST(SGOT) 17 U/L (15-37); Alanine Aminotransfer ALT/SGPT 16 U/L (13-56); Albumin, Serum 3.5 g/dL (3.2-5.0); Alkaline Phosphatase 57 U/L (45-117); Bilirubin, Direct 0.11 mg/dL (0.00-0.30); Cholesterol 223 mg/dL (200); Globulin 3.4 g/dL (2.2-4.2); High Density Lipoprotein 90 mg/dL; Protein, Total 6.9 g/dL (6.4-8.2); Triglycerides 55 mg/dL; Very Low Density Lipoprotein 11 mg/dL (5-40)
== END | disposition home or self-care (01) ==
PROVIDERS: PCP Family Medicine; Referring Provider Internal Medicine Cardiovascular Disease; Visit Provider Internal Medicine Cardiovascular Disease
DX: E78.00 Pure hypercholesterolemia, unspecified (principal)
CPT/HCPCS: 36415; 80061; 80076

== ENCOUNTER → 2022-06-24 | Outpatient (CLI) | payer MEDICARE, SELFPAY ==
[2022-06-24 09:11] LABS: AST(SGOT) 20 U/L (15-37); Alanine Aminotransfer ALT/SGPT 25 U/L (13-56); Albumin, Serum 3.6 g/dL (3.2-5.0); Alkaline Phosphatase 59 U/L (45-117); Bilirubin, Direct 0.14 mg/dL (0.00-0.30); Cholesterol 199 mg/dL (200); Globulin 3.3 g/dL (2.2-4.2); High Density Lipoprotein 90 mg/dL; Protein, Total 6.9 g/dL (6.4-8.2); Triglycerides 68 mg/dL; Very Low Density Lipoprotein 14 mg/dL (5-40)
== END | disposition home or self-care (01) ==
PROVIDERS: PCP Family Medicine; Referring Provider Internal Medicine Cardiovascular Disease; Visit Provider Internal Medicine Cardiovascular Disease
DX: E78.5 Hyperlipidemia, unspecified (principal); I38 Endocarditis, valve unspecified
CPT/HCPCS: 36415; 80061; 80076

== ENCOUNTER → 2022-12-21 | Outpatient (CLI) | payer MEDICARE, SELFPAY | END | disposition home or self-care (01) | LOC: LABSPEC 13:13 | PROVIDERS: PCP Family Medicine; Referring Provider Family Medicine; Visit Provider Family Medicine | DX: R30.0 Dysuria (principal) | CPT/HCPCS: 87086; 87088 ==

== ENCOUNTER → 2023-01-11 | Outpatient (CLI) | payer MEDICARE, SELFPAY ==
--- NOTE | 2023-01-11 12:57 | US_ITS ---
STUDY: ULTRASOUND OF THE FEMALE PELVIS - COMPLETE REASON FOR EXAM: Female, 82 years old. VAGINAL BLEEDING LMP: TECHNIQUE: Transabdominal TECHNICAL QUALITY: Adequate. COMPARISON: None. FINDINGS: The uterus is anteverted and is deviated towards the left. The uterus measures 4.6 x 3.5 x 2.6 cm. Normal uterine cervix. The endometrium measures 6 mm in thickness, and is distended with fluid or blood.. There is no demonstrated endometrial mass. There is no demonstrated myometrial mass. I.U.D. - The patient does not have an I.U.D. Normal ovaries are not visualized. There is no adnexal cystic or solid mass There is no fluid in the cul-de-sac. The pre void volume of the bladder was [147 ml.
== END | disposition home or self-care (01) ==
LOC: US 12:56
PROVIDERS: PCP Family Medicine; Referring Provider Family Medicine; Visit Provider Family Medicine
DX: N93.9 Abnormal uterine and vaginal bleeding, unspecified (principal)
CPT/HCPCS: 76856

== ENCOUNTER → 2023-01-31 | Outpatient (CLI) | payer MEDICARE, SELFPAY ==
--- NOTE | 2023-01-31 | EMB_PTH ---
PATIENT: CHRIS SERRANO [facility] U#:[id number] AGE/SX: 82/F ROOM: RE01/31/[address]: YOANA Starks : 1940 BED: DIS: 01/31/2023 SPEC #: [id number] RECD: 01/31/23 15:32 STATUS: LEVY DOUGLASS #: [id number] ANDREW: 01/31/23 00:[address]: Leyla Huerta NP DEPT: SURGICAL PATHOLOGY RECD BY: Wellington Moses ENTERED: 02/01/23 08:37 SP TYPE: ENDOM BX/C ANTONIO DR: Dr. Mai Couch MD Tissues: Endometrium, NOS Procedures: Surgery Specimen Level IV HEADER OPERATION: Endometrial biopsy PRE-OP DIAGNOSIS: Postmenopausal bleeding TISSUE SUBMITTED: Endometrial tissue MICROSCOPIC DIAGNOSIS Endometrial biopsy: Scant fragments of glandular mucosa and glandular epithelium. See comment. ANDREA:jaron 02/02/2023 COMMENT The specimen predominantly consists of mucous. Clinical correlation and appropriate follow up are necessary. MICROSCOPIC DESCRIPTION Slides are reviewed. GROSS DESCRIPTION Received is one container labeled with the patient's name and not further designated. The specimen consists of multiple irregular fragments of light montalvo mucoid material that in aggregate measure 1.2 x 0.5 x <0.1 cm. The specimen is totally submitted in one cassette. / AM:jaron 02/01/2023 TC:4 CPT: 98759
== END | disposition home or self-care (01) ==
LOC: LABSPEC 15:59
PROVIDERS: PCP Family Medicine; Referring Provider Nurse Practitioner Women's Health; Visit Provider Nurse Practitioner Women's Health
DX: N95.0 Postmenopausal bleeding (principal)
CPT/HCPCS: 88305

== ENCOUNTER → 2023-05-28 | Outpatient (CLI) | payer MEDICARE, SELFPAY ==
[2023-05-28 13:45] LABS: Hematocrit 41.3 % (37-47); Hemoglobin 13.5 g/dL (12.0-15.0); Mean Corp Hgb Conc 32.7 g/dL (32-36); Mean Corpuscular Hgb 29.7 pg (27.0-32.0); Mean Corpuscular Volume 90.8 fL (81-99); Mean Platelet Vol. 10.8 fl (6.2-12.0); Platelet Count 270 K/mm3 (150-450); RBC Distribution Width CV 13.2 % (11.6-14.6); Red Blood Count 4.55 M/mm3 (4.2-5.4); White Blood Count 6.8 K/mm3 (4.4-11.0)
[2023-05-28 14:14] LABS: Anion Gap 4 (5-15); BUN 13 mg/dL (7-18); BUN/Creat Ratio 15.8 RATIO (10-20); Calcium,Total 9.4 mg/dL (8.5-10.1); Chloride 103 mmol/L (98-107); Creatinine, Serum 0.82 mg/dL (0.55-1.02); EST Glomerular Filtration Rate 71 mL/min (>60); Est Glom Filt Rate - Afr Amer 86 mL/min (>60); Glucose 96 mg/dL (74-106); Magnesium 2.3 mg/dL (1.6-2.6); Potassium 4.4 mmol/L (3.5-5.1); Sodium Level 134 mmol/L (136-145); Thyroid Stim Hormone (TSH) 2.09 uIU/mL (0.358-3.74)
== END | disposition home or self-care (01) ==
LOC: LAB 12:42
PROVIDERS: PCP Family Medicine; Referring Provider Physician Assistant Medical; Visit Provider Physician Assistant Medical
DX: R00.2 Palpitations (principal); I49.3 Ventricular premature depolarization; I49.1 Atrial premature depolarization
CPT/HCPCS: 36415; 80048; 83735; 84443; 85027

== ENCOUNTER → 2023-06-05 | Outpatient (CLI) | payer MEDICARE, SELFPAY | END | disposition home or self-care (01) | LOC: PSN 11:56 | PROVIDERS: PCP Family Medicine; Referring Provider Physician Assistant Medical; Visit Provider Physician Assistant Medical | DX: I49.3 Ventricular premature depolarization (principal); I49.1 Atrial premature depolarization; R00.2 Palpitations; I35.8 Other nonrheumatic aortic valve disorders | CPT/HCPCS: 93225; 93226 ==

== ENCOUNTER → 2023-08-10 | Outpatient (CLI) | payer MEDICARE, SELFPAY ==
--- OUTSIDE RECORDS SUMMARY | 2023-08-10 11:57 | XMS RPT_ITS | CCD ---
Author Name Unknown Address [address] [place] [address] Organization [facility] Care Team Providers Care Wood Calker Name Role Phone Allen Parker MD Unavailable Hyun Houston Unavailable Unavailable Hyun Houston Unavailable Unavailable Jo Ann Zuniga DO Unavailable Karyna Em Unavailable Unavailable Jessika Horn Unavailable Unavailable Elena Crawford Unavailable Unavailable Unavailable Unavailable Unavailable Primary Care Provider Unavailabl e Medications Current Medications Medication Drug Class(es) Dates Sig (Normalized) Sig (Original) predniSONE 10 mg oral tablet (1 source) Start: 06-23-2022 End: 07-02-2022 predniSONE (DELTASONE) 10 mg tablet Indications: Rash Take 4 tabs daily for 3 days, then 2 tabs daily for 3 days, then 1 tab daily for 3 days with food. 21 tablet 0 06/23/2022 07/02/2022 Active Completed/Discontinued Medications Medication Drug Class(es) Dates Sig (Normalized) Sig (Original) [id number] 200 actuat albuterol 0.09 mg/actuat metered dose inhaler (1 source) beta2-Adrenergic Agonist Start: 08-12-2014 take 2 puff(s) by inhalation every six hours as needed for wheezing albuterol HFA (PROVENTIL HFA, VENTOLIN HFA) 90 mcg/actuation inhaler Indications: Pneumonia Inhale 2 Puffs as instructed every 6 hours as needed for Wheezing/Shortnes s of Breath. 1 Inhaler 2 08/12/2014 Active Problems Active Problems Problem Classification Problem Date Documented Da te Episodic/Chronic Cardiac dysrhythmias (3 sources) Ventricular premature beats; Translations: [Ventricular premature depolarization] Onset: 03-08-2015 03-08-2015 Chronic Disorders of lipid metabolism (3 sources) Hyperlipidemia; Translations: [Hyperlipidemia, unspecified] Onset: 12-20-2011 12-20-2011 Chronic Heart valve disorders (7 sources) Aortic valve disorder; Translations: [Aortic valve disorder] Onset: 06-26-2011 06-26-2011 Chronic Immunizations and screening for infectious disease (3 sources) Requires vaccination; Translations: [Need for vaccination against Streptococcus pneumoniae] 08-25-2014 Episodic Neoplasms of unspecified nature or uncertain behavior (1 source) Neoplasm of uncertain behavior of skin; Translations: [Neoplasm of uncertain behavior of skin] 06-14-2015 Episodic Other bone disease and musculoskeletal deformities (2 sources) Osteopenia; Translations: [Osteopenia] 08-25-2014 Episodic Other circulatory disease (1 source) Elevated blood-pressure reading without diagnosis of hypertension; Translations: [Elevated blood pressure (not hypertension)] 06-15-2015 Episodic Other screening for suspected conditions (not mental disorders or infectious disease) (1 source) Imaging of thorax abnormal; Translations: [Abnormal chest x-ray] 06-16-2015 Chronic Other skin disorders (1 source) Eruption; Translations: [Rash and other nonspecific skin eruption] Episodic Pneumonia (except that caused by tuberculosis or sexually transmitted disease) (1 source) Bacterial pneumonia; Translations: [Unspecified bacterial pneumonia] 06-15-2015 Episodic Skin and subcutaneous tissue infections (3 sources) Cellulitis; Translations: [Cellulitis] Resolved: 08-25-2014 08-25-2014 Episodic Past or Other Problems Problem Classification Problem Date Documented Da te Episodic/Chronic Cardiac dysrhythmias (3 sources) Palpitations; Translations: [Palpitations] Onset: 06-26-2011 06-26-2011 Episodic E Codes: Adverse effects of medical drugs (1 source) Adverse reaction to drug; Translations: [Adverse effect of unspecified drugs, medicaments and biological substances, initial encounter] Resolved: 08-25-2014 07-09-2015 Episodic Results Test Name Value Interpretation Reference Range Facil ity Vital Signs Date Time Vital Sign Value Performing Clinician Facility 06-23-2022 13:06-0500 Body temperature 97.5 [degF] Faisal Arredondo APRN.CNP Work Phone: [facility] 06-23-2022 13:06-0500 Body weight 63.05 kg Faisal Arredondo IN HOME CAREGIVER.CONFERENCE COORDINATOR Work Phone: [facility] 06-23-2022 13:06-0500 Diastolic blood pressure 82 mm[Hg] Faisal Arredondo IN HOME CAREGIVER.CONFERENCE COORDINATOR Work Phone: [facility] 06-23-2022 13:06-0500 Heart rate 56 /min Faisal King IN HOME CAREGIVER.CONFERENCE COORDINATOR Work Phone: [facility] 06-23-2022 13:06-0500 Respiratory rate 16 /min Faisal Arredondo IN HOME CAREGIVER.CONFERENCE COORDINATOR Work Phone: [facility] 06-23-2022 13:06-0500 SaO2% (BldA) [Mass fraction] 97 % Faisal Arredondo IN HOME CAREGIVER.CONFERENCE COORDINATOR Work Phone: [facility] 06-23-2022 13:06-0500 Systolic blood pressure 140 mm[Hg] Faisal King IN HOME CAREGIVER.CONFERENCE COORDINATOR Work Phone: [facility] 03-05-2017 09:19-0400 BMI (Body Mass Index) 27.53 kg/m2 Davonrachidmnuira Houston [facility] Work Phone: 03-05-2017 09:19-0400 BP Diastolic 62 mm[Hg] Davontalle Celso [facility] Work Phone: 03-05-2017 09:19-0400 BP Systolic 110 mm[Hg] Davontalle Celso [facility] Work Phone: 03-05-2017 09:19-0400 Height 152.4 cm Davontalle Celso [facility] Work Phone: 03-05-2017 09:19-0400 Pulse (Heart Rate) 72 /min Hyun Houston [facility] Work Phone: 03-05-2017 09:19-0400 Respiratory Rate 16 /min [facility] Work Phone: 03-05-2017 09:19-0400 Weight 63.96 kg Davontalle Celso [facility] Work Phone: 03-06-2016 09:32-0400 BSA (Body Surface Area) 1.61 m2 [facility]un [facility] Work Phone: 03-08-2015 09:14-0400 Heart rate 72 /min [facility] Work Phone: 08-25-2014 14:00-0500 Body height 150.5 cm Jessika [facility] Work Phone: 08-25-2014 14:00-0500 Body mass index (BMI) [Ratio] 28.44 kg/m2 Jessika Horn [facility]; [facility] Work Phone: 08-25-2014 14:00-0500 Body surface area Derived from formula 1.6 m2 Jessika [facility] Work Phone: 08-25-2014 14:00-0500 Body temperature 95.5 [degF] Jessika Horn [facility]; [facility] Work Phone: 08-25-2014 14:00-0500 Body weight 64.41 kg Jessika Horn [facility]; [facility] Work Phone: 08-25-2014 14:00-0500 Diastolic blood pressure 62 mm[Hg] Jessika Horn [facility]; [facility] Work Phone: Encounters Encounter Date Encounter Type Care Provider Facility Start: 06-23-2022 End: 06-23-2022 ambulatory Facility:[facility] Start: 06-23-2022 End: 06-23-2022 Patient encounter procedure Faisal Arredondo APRN.CNP Work Phone: [facility] Care Procedures Date Procedure Procedure Detail Performing Clinician Start: 03-05-2017 End: 03-05-2017 Dietary management education, guidance, and counseling Hyun Houston Start: 03-05-2017 End: 03-22-2017 *Hepatic Function Panel Allen Parker MD Start: 03-05-2017 End: 03-05-2017 Follow Up Appt 1 year Allen Mills Start: 03-05-2017 End: 03-22-2017 Lipid panel [AGGREGATE] Allen Parker MD Start: 03-05-2017 End: 03-05-2017 PFM Allen Parker MD Start: 03-06-2016 End: 03-06-2016 Follow Up Appt 1 year Allen Mills Start: 03-06-2016 End: 03-06-2016 PFM Allen Parker MD Start: 03-08-2015 End: 02-20-2017 *Hepatic Function Panel Allen Parker MD Start: 03-08-2015 End: 03-09-2015 Documentation of current medications Allen Parker MD Start: 03-08-2015 End: 03-08-2015 Electrocardiogram, complete Allen Parker MD Start: 03-08-2015 End: 03-08-2015 Follow Up Appt 1 year Allen Mills Start: 03-08-2015 End: 02-20-2017 Follow Up Appt Other Allen Parker MD Start: 03-08-2015 End: 02-20-2017 Lipid panel [AGGREGATE] Allen Parker MD Start: 03-08-2015 End: 03-08-2015 PFM Allen Parker MD Start: 09-09-2014 End: 09-10-2014 Chest PA and Lateral Comments: See Note; NOTES: [facility] Imaging Services [address] [place] [address] Radiology Report MR#: [id number] Acct: [id number] Name: CHRIS SERRANO Rep #: [id number] : 1940 F 74 From: Filemon Bella DO PCP: Status: REG CLI Study: Chest PA and Lateral Date of Exam: 09/09/14 Exam# [id number] Ordering Dr: Jo Ann Zuniga DO STUDY: X-RAY CHEST REASON FOR EXAM: Female, 74 years old. 2 weeks post pneumonia TECHNIQUE: PA and lateral views of the chest. COMPARISON: No comparison studies are available. FINDINGS: There is hyperinflation of the lungs consistent with chronic obstructive lung disease (COPD). No focal consolidation. There is no demonstrated pleural abnormality. Normal size heart. Normal mediastinum and andres. Normal visualized pulmonary arteries. Normal visualized aortic arch and descending thoracic aorta. The bony structures are osteopenic. Mild degenerative changes are seen within the thoracic spine. There is degenerative osteoarthritis of the bilateral shoulders. There is no demonstrated abnormality of the visualized soft tissue structures of the upper abdomen. IMPRESSION: COPD, without focal pneumonia. Electronically Signed: Filemon Bella DO at 5:40 EST Tel , Service support [phone], CC: Jo Ann Zuniga DO Soaker Helper: Signed Jo Ann Zuniga DO Work Phone: Start: 03-04-2014 End: 02-20-2017 Echocardiography Allen Parker MD Start: 03-04-2014 End: 03-04-2014 Follow Up Appt 1 year Allen Mills Start: 03-04-2014 End: 03-04-2014 PFM Allen Parkre MD Start: 12-12-2012 End: 03-04-2014 *CMP Complete Metabolic Panel Melodie Calabrese PA-C Work Phone: Start: 12-12-2012 End: 03-04-2014 Echocardiography Melodie Calabrese PA-C Work Phone: Start: 12-12-2012 End: 12-12-2012 Electrocardiogram, complete Melodie Calabrese PA-C Work Phone: Start: 12-12-2012 End: 12-12-2012 Follow Up Appt 1 year Melodie Calabrese PA-C Work Phone: Start: 12-12-2012 End: 03-04-2014 Lipid panel [AGGREGATE] Melodie Calabrese PA-C Work Phone: Start: 12-12-2012 End: 12-12-2012 PFM Melodie Calabrese PA-C Work Phone: Start: 03-21-2012 End: 12-12-2012 *Hepatic Function Panel Allen Parker MD Start: 03-21-2012 End: 12-12-2012 Lipid panel [AGGREGATE] Allen Parker MD Start: 12-14-2011 End: 12-14-2011 Electrocardiogram, complete Allen Parker MD Start: 12-14-2011 End: 12-14-2011 Follow Up Appt 1 year Allen Mills Start: 12-14-2011 End: 12-14-2011 Follow Up Appt Other Allen Parker MD Plan of Treatment Date Care Activity Detail Author Start: 03-30-2022 Influenza vaccination INFLUENZA (#1) [facility] Start: 09-12-2021 COVID-19 VACCINE (4 - Booster for Moderna series) COVID-19 VACCINE (4 - Booster for Moderna series) [facility] Start: 07-30-2021 ADVANCE DIRECTIVE DISCUSSION ADVANCE DIRECTIVE DISCUSSION [facility] Start: 07-30-2021 DEPRESSION ASSESSMENT DEPRESSION ASSESSMENT [facility] Start: 03-11-2018 End: 03-11-2018 Appointment Appointment [facility] Work Phone: Start: 03-05-2017 End: 03-05-2017 Appointment Appointment [facility] Work Phone: Start: 03-05-2017 End: 03-22-2017 *Hepatic Function Panel *Hepatic Function Panel [facility] Work Phone: Start: 03-05-2017 End: 03-05-2017 Follow Up Appt 1 year Follow Up Appt 1 year [facility] Work Phone: Start: 03-05-2017 End: 03-22-2017 Lipid panel [AGGREGATE] *Lipid Profile CC PCP [facility] Work Phone: Start: 03-05-2017 End: 03-05-2017 PFM PFM [facility] Work Phone: Start: 03-06-2016 End: 03-06-2016 Follow Up Appt 1 year Follow Up Appt 1 year [facility] Work Phone: Start: 03-06-2016 End: 03-06-2016 PFM PFM [facility] Work Phone: Start: 03-08-2015 End: 02-20-2017 *Hepatic Function Panel *Hepatic Function Panel [facility] Work Phone: Start: 03-08-2015 End: 03-08-2015 Electrocardiogram, complete EKG (In office) [facility] Work Phone: Start: 03-08-2015 End: 03-08-2015 Follow Up Appt 1 year Follow Up Appt 1 year [facility] Work Phone: Start: 03-08-2015 End: 02-20-2017 Follow Up Appt Other Follow Up Appt Other [facility] Work Phone: Start: 03-08-2015 End: 02-20-2017 Lipid panel [AGGREGATE] *Lipid Profile CC PCP [facility] Work Phone: Start: 03-08-2015 End: 03-08-2015 PFM PFM [facility] Work Phone: Start: 08-25-2014 End: 08-26-2014 Spmtry w/vc expiratory manuelito w/wo mxml vol vntj Spirometry ([id number]) [facility] Work Phone: Immunizations Immunization Date Immunization Notes Care Provider Richard matthews 10-08-2015 pneumococcal polysaccharide vaccine, 23 valent Jo Ann Fast DO Work Phone: [facility] Work Phone: Payers Date Payer Category Payer Medicare [id number] 2016 Unknown 2006 Medicare MEDICARE MEDICAR E A AND B [id number] 2006-Present [phone] [place] [address] Medicare [id number] 2006 Medicare [id number] Social History Date Type Detail Facility Alcohol Use Alcohol Use [facility] Work Phone: Progress note 06-23-2022 Note Date & Type Note Facility 06-23-2022 Note HNO ID: [id number] Author: Faisal Arredondo APRN.CONFERENCE COORDINATOR Service: ? Author Type: Nurse Practitioner Type: Progress Notes Filed: 06/23/2022 2:02 PM Note Text: Subjective HPI HPI Crhis Serrano is a 82 year old female who presents today for CC of itchy rash. This started 3 months ago/intermittent. Has tried multiple otc medications without relief as well as mupirocin. Symptoms are worsened by possibly by garden/outside plants. Hx of rosacea .Patient presents with: Rash: Javier right eye and left collar bone x 3 months, burning No past medical history on file. No past surgical history on file. ALLERGIES Patient has no known allergies. MEDICATIONS predniSONE (DELTASONE) 10 mg tablet Take 4 tabs daily for 3 days, then 2 tabs daily for 3 days, then 1 tab daily for 3 days with food. triamcinolone acetonide (KENALOG) 0.1 % cream Apply 1 application to affected area three times daily for 10 days. Apply sparingly to area for rash/itching. albuterol HFA (PROVENTIL HFA, VENTOLIN HFA) 90 mcg/actuation inhaler Inhale 2 Puffs as instructed every 6 hours as needed for Wheezing/Shortness of Breath. (Patient not taking: No sig reported) No family history on file. Social History Tobacco Use Smoking status: Never Smokeless tobacco: Never ROS Objective Blood pressure 140/82, pulse (!) 56, temperature 36.4 ?C (97.5 ?F), resp. rate 16, weight 63 kg (139 lb), SpO2 97 %. Physical Exam Constitutional: General: She is not in acute distress. Appearance: She is not toxic-appearing or diaphoretic. HENT: Head: Normocephalic and atraumatic. Pulmonary: Effort: Pulmonary effort is normal. No accessory muscle usage or respiratory distress. Skin: Neurological: Mental Status: She is alert and oriented to person, place, and time. ASSESSMENT/PLAN: 1. Rash - ICD9: 782.1, ICD10: R21 Possibly allergic dermatitis -use medication as prescribed -follow up if symptoms persist, worsen, change - PREDNISONE 10 MG TABLET - TRIAMCINOLONE ACETONIDE 0.1 % TOPICAL CREAM Faisal Arredondo APRN.[facility] History of Present illness Narrative 06-23-2022 Faisal Arredondo APRN.ANIKA - 06/23/2022 1:28 PM EST Note Date & Type Note Facility 06-23-2022 History of Presen t illness Narrative Images from the original note were not included. Subjective HPI HPI Chris Serrano is a 82 year old female who presents today for CC of itchy rash. This started 3 months ago/intermittent. Has tried multiple otc medications without relief as well as mupirocin. Symptoms are worsened by possibly by garden/outside plants. Hx of rosacea .Patient presents with: Rash: Javier right eye and left collar bone x 3 months, burning No past medical history on file. No past surgical history on file. ALLERGIES Patient has no known allergies. MEDICATIONS predniSONE (DELTASONE) 10 mg tablet Take 4 tabs daily for 3 days, then 2 tabs daily for 3 days, then 1 tab daily for 3 days with food. triamcinolone acetonide (KENALOG) 0.1 % cream Apply 1 application to affected area three times daily for 10 days. Apply sparingly to area for rash/itching. albuterol HFA (PROVENTIL HFA, VENTOLIN HFA) 90 mcg/actuation inhaler Inhale 2 Puffs as instructed every 6 hours as needed for Wheezing/Shortness of Breath. (Patient not taking: No sig reported) No family history on file. Social History Tobacco Use Smoking status: Never Smokeless tobacco: Never ROS Objective Blood pressure 140/82, pulse (!) 56, temperature 36.4 C (97.5 F), resp. rate 16, weight 63 kg (139 lb), SpO2 97 %. Physical Exam Constitutional: General: She is not in acute distress. Appearance: She is not toxic-appearing or diaphoretic. HENT: Head: Normocephalic and atraumatic. Pulmonary: Effort: Pulmonary effort is normal. No accessory muscle usage or respiratory distress. Skin: Neurological: Mental Status: She is alert and oriented to person, place, and time. ASSESSMENT/PLAN: 1. Rash - ICD9: 782.1, ICD10: R21 Possibly allergic dermatitis -use medication as prescribed -follow up if symptoms persist, worsen, change - PREDNISONE 10 MG TABLET - TRIAMCINOLONE ACETONIDE 0.1 % TOPICAL CREAM Faisal Arredondo APRN.ANIKA documented in this encounter [facility] Evaluation note Note Date & Type Note Facility documented in this encounter [facility] Instructions Note Date & Type Note Facility [facility] Work Phone: Family History No Family History Records FoundUnknown Family Member Name Dates Details Brother 2 Comments:pacemaker Status:Active Father Comments: mi age 89-- ht n Status:Active First Degree Relatives Comments:ETOH, Blood disorde r, CA, DM, HBP, high cholesterol, Seizures, stroke, traumatic Status:Active Mother Comments: age 90-- advan raoul osteoporosis, seizures- unsure why- temporal arteritis as well, dementia Status:Active Sister 4 Comments:htn Status:Active Summary Purpose Advance Directives No Advanced Directives Records Found Additional Source Comments Source Comments (unrecognize d section and content) In the event this informatio n is protected by the Federal Confidentiality of Alcohol and Drug Abuse Patient Records regulations: The Federal rules restrict any use of the information to criminally investigate or prosecute any alcohol or drug abuse patient.[facility] Reason for Visit (unrecogniz ed section and content) INFORMATION SOURCE (unrecogn ized section and content) FOR RECORDS PERTAINING TO PATIENTS WHO ARE OR HAVE BEEN ENROLLED IN A CHEMICAL DEPENDENCY/SUBSTANCEABUSE PROGRAM, SOME INFORMATION MAY BE OMITTED. This clinical summary was aggregated from multiple sources. Caution should be exercised in using it in the provision of clinical care. This summary normalizes information from multiple sources, and as a consequence, information in this document may materially change the coding, format and clinical context of patient data. In addition, data may be omitted in some cases. CLINICAL DECISIONS SHOULD BE BASED ON THE PRIMARY CLINICAL RECORDS. [facility] [email or web address] [facility]. provides no warranty or guarantee of the accuracy or completeness of information in this document.
[2023-08-10 13:10] LABS: AST(SGOT) 19 U/L (15-37); Alanine Aminotransfer ALT/SGPT 24 U/L (13-56); Albumin, Serum 3.4 g/dL (3.2-5.0); Alkaline Phosphatase 59 U/L (45-117); Bilirubin, Direct 0.12 mg/dL (0.00-0.30); Cholesterol 184 mg/dL (200); Globulin 3.6 g/dL (2.2-4.2); High Density Lipoprotein 70 mg/dL; Triglycerides 77 mg/dL; Very Low Density Lipoprotein 15 mg/dL (5-40)
== END | disposition home or self-care (01) ==
LOC: LAB 11:26
PROVIDERS: PCP Family Medicine; Referring Provider Nurse Practitioner Gerontology; Visit Provider Nurse Practitioner Gerontology
DX: E78.5 Hyperlipidemia, unspecified (principal)
CPT/HCPCS: 36415; 80061; 80076

== ENCOUNTER → 2023-12-31 | Outpatient (CLI) | payer MEDICARE, SELFPAY ==
--- NOTE | 2023-12-31 09:49 | ECHOD_ITS ---
Reason For Study: AV disorder Procedure This was a 2D Doppler, Color Flow transthoracic echocardiogram. Exam performed in department. Left Ventricle Normal LV size. Left ventricular systolic function is normal. The left ventricular ejection fraction is 65 %. Stage 1 diastolic dysfunction. No regional wall motion abnormalities noted. Right Ventricle Normal RV size. Normal systolic function. Atria Normal left atrium. Normal right atrium. Mitral Valve Bileaflet diffuse mitral valve thickening. Mild-Moderate (1-2+) eccentric mitral valve insufficiency. Tricuspid Valve Normal tricuspid valve. Mild (1+) tricuspid valve insufficiency. Pulmonary artery systolic pressure is 35 mmHg. Aortic Valve Trisinus/trileaflet aortic valve. Mild (1+) aortic valve insufficiency. Pulmonic Valve The pulmonic valve is not well visualized. Great Vessels Normal aortic root. The pulmonary artery is normal size. Normal inferior vena cava. Pericardium/Pleural No pericardial effusion. MMode/2D Measurements & Calculations LVIDd: 3.8 cm IVSd: 1.0 cm Ao root diam: 2.9 cm LVIDs: 2.1 cm LVPWd: 1.0 cm RVDd: 3.1 cm FS: 44.4 % LAV(MOD-bp): 43.1 ml LVAd ap4: 21.5 cm2 LVAd ap2: 21.5 cm2 LAV(MOD-bp) Indexed: 27.1 ml/m2 LVLd ap4: 7.1 cm LVLd ap2: 6.3 cm LAV(MOD-sp2): 37.1 ml EDV(MOD-sp4): 55.0 ml EDV(MOD-sp2): 62.1 ml LAV(MOD-sp4): 40.8 ml EDV(sp4-el): 55.3 ml EDV(sp2-el): 62.1 ml LVAs ap4: 11.8 cm2 LVAs ap2: 12.1 cm2 LVLs ap4: 5.9 cm LVLs ap2: 5.8 cm ESV(MOD-sp4): 20.5 ml ESV(MOD-sp2): 22.0 ml ESV(sp4-el): 20.2 ml ESV(sp2-el): 21.4 ml EF(MOD-sp4): 62.8 % EF(MOD-sp2): 64.5 % EF(sp4-el): 63.4 % SV(MOD-sp4): 34.6 ml SV(MOD-sp2): 40.1 ml SV(sp4-el): 35.1 ml LA dimension(2D): 2.7 cm LA A4 area: 16.3 cm2 RA A4 area: 14.5 cm2 TAPSE: 1.9 cm Time Measurements MV dec time: 0.18 sec Doppler Measurements & Calculations MV E max benjie: 61.9 cm/sec Lat Peak E' Benjie: 6.9 cm/sec Med Peak E' Benjie: 6.2 cm/sec MV A max benjie: 76.2 cm/sec E/E' lat: 9.0 E/E' med: 9.9 MV E/A: 0.81 MV dec slope: 352.8 cm/sec2 Ao V2 max: 96.5 cm/sec AI max benjie: 434.8 cm/sec Ao max P.0 mmHg AI max P.6 mmHg AI dec slope: 151.7 cm/sec2 AI P1/2t: 839.3 msec LV V1 max: 73.0 cm/sec PA V2 max: 54.1 cm/sec TR max benjie: 278.0 cm/sec LV V1 max P.3 mmHg TR max P.9 mmHg ECHO/Echo Complete Interpretation Summary Normal LV size. Left ventricular systolic function is normal. The left ventricular ejection fraction is 65 %. Stage 1 diastolic dysfunction. Mild-Moderate (1-2+) eccentric mitral valve insufficiency. Mild (1+) aortic valve insufficiency. Ordering Physician: Carlotta Lackey Referring Physician: Mai Couch Performed By: Angélica Santiago RDCS
== END | disposition home or self-care (01) ==
PROVIDERS: PCP Family Medicine; Referring Provider Nurse Practitioner Gerontology; Visit Provider Nurse Practitioner Gerontology
DX: I35.8 Other nonrheumatic aortic valve disorders (principal)
CPT/HCPCS: 93306

== ENCOUNTER 2024-03-27 06:45 | Emergency (ER) | payer MEDICARE, SELFPAY ==
[2024-03-27 06:46] VITALS: BP 156/66; PULSE 73; RESP 14; TEMP 36.5; O2SAT 97; BMI 27.5
--- NOTE | 2024-03-27 07:20 | EKG12_ITS ---
Test Reason : DIZZINESS Blood Pressure : / mmHG Vent. Rate : 071 BPM Atrial Rate : 071 BPM P-R Int : 132 ms QRS Dur : 132 ms QT Int : 452 ms P-R-T Axes : 014 -15 047 degrees QTc Int : 491 ms Sinus rhythm with frequent Premature ventricular complexes in a pattern of bigeminy Right bundle branch block Abnormal ECG Confirmed by Gianfranco Umaña ([id number]), design editor HORTENSIA CHRIS ([id number]) on 03/28/2024 8:16:30 AM Referred By: KRISTIN Confirmed By:Gianfranco Umaña
--- NOTE | 2024-03-27 07:21 | EDS_ITS ---
HPI History of Present Illness Chief Complaint: Dizziness Informant: patient and family Narrative Narrative: 83-year-old female states that this morning around 0400 hrs. she awoke. When she went to sit up she had a sudden onset that the room was spinning. She st ates when she went to look at the clock she can to see a red streak. She ambulated to the bathroom. She had 3 episodes of emesis. She states now the room spinning sensation is intermittent. The nausea is intermittent. She denies any recent URIs or illnesses. She denies any diarrhea. Patient denies any recent fevers. No chest pain shortness of breath. No headache or neck pain. She is never experienced this before. [facility] Medical History (Updated 03/27/24 @ 10:[address] Mika Desir DO) Aortic valve prolapse Nonrheumatic aortic valve disorder Nonrheumatic aortic (valve) insufficiency Hyperlipidemia Premature ventricular contraction Premature atrial contractions Home Medications ?Medication ?Instructions ?Recorded ?Last Taken ?Type ascorbic acid (vitamin C) 500 mg 500 mg PO DAILY@0800 SUPPLEMENT 09/12/19 09/12/19 09:00 History tablet calcium carbonate 500 mg PO DAILY@0800 SUPPLEMENT 09/12/19 09/12/19 09:00 History cranberry fruit concentrate 250 mg 250 mg PO DAILY 04/12/20 Unknown History chewable tablet (Azo Cranberry) cholecalciferol (vitamin D3) 50 50 mcg PO DAILY 04/13/21 Unknown History mcg (2,000 unit) tablet apple cider vinegar 600 mg capsule mg PO 01/31/23 Unknown History ezetimibe 10 mg tablet (Zetia) 10 mg PO DAILY #30 tabs 05/18/23 Unknown Rx metoprolol succinate 25 mg 25 mg PO DAILY #30 tabs 06/18/23 Unknown Rx tablet,extended release 24 hr meclizine 25 mg tablet 25 mg PO TID PRN dizziness #10 tabs 03/27/24 Unknown Rx ondansetron 4 mg disintegrating 4 mg PO Q6H PRN PRN Nausea #15 tabs 03/27/24 Unknown Rx tablet Allergy/AdvReac Type Severity Reaction Status Date / Time atorvastatin AdvReac Severe myalgias Verified 03/27/24 06:50 Family History Father CAD (coronary artery disease) Myocardial infarction Hypertension Surgical History Cataract extraction status of right eye Social History number of children: 1 current occupational status: retired Smoking Status: Never smoker alcohol intake: current details: occasional substance use type: does not use seatbelt use: always do you feel safe at home: Yes additional social history: ROS ROS ED ROS Narrative Room spinning sensation (dizziness) Constitutional Constitutional ED: Denies chills, fever(s) or weight loss Eyes Eyes: Denies change in vision or diplopia ENT ENT ED: Denies ear pain, rhinorrhea or sore throat Cardiovascular Cardiovascular: Denies chest pain, orthopnea, palpitations or racing heartbeat Respiratory/Chest Respiratory/Chest: Denies cough, dyspnea or orthopnea Gastrointestinal Gastrointestinal: Reports nausea and vomiting; Denies abdominal pain or diarrhea Genitourinary Genitourinary ED: Denies dysuria, hematuria or urinary frequency Musculoskeletal Musculoskeletal: Denies arthralgias or myalgias Integumentary Denies abscess or rash Neurologic Neurologic: Denies headache(s), paresthesias or weakness Psychiatric Psychiatric: Denies anxiety, depression, suicidal ideation or suicidal thoughts Endocrine Endocrinology: Denies polydipsia, polyphagia or polyuria Allergic/Immunologic Allergic/Immunologic ED: Denies mouth swelling, tongue swelling or urticaria EXAM Physical Exam Const Vital Signs: 03/27/24 06:46 03/27/24 09:00 Temperature 97.7 F L Temperature Source Oral Pulse Rate 73 69 Respiratory Rate 14 13 Blood Pressure 156/66 H 143/78 H Blood Pressure Mean 96 98 Pulse Ox 97 97 Oxygen Delivery Method Room Air Positive well nourished and well developed General Appearance ED: well developed HEENT Reports normocephalic, head/scalp atraumatic and moist mucous membranes HEENT Narrative: There is no nystagmus. No room spinning sensation with movement of head currently. Eyes PERRL and EOMs intact bilaterally Neck no lymphadenopathy, supple and no JVD Resp normal respiratory effort and clear to auscultation bilaterally Cardio regular rate, regular rhythm and no murmurs GI normal to inspection, nondistended, normoactive bowel sounds and non-tender Palpation: soft Back/Spine no CVA tenderness and normal ROM Extremity normal to inspection General Extremety ED: Negative for edema General Extremity: Negative for edema Neuro oriented x3 and CN's II-XII intact bilaterally Sensorium / Orientation: alert Motor Exam: strength 5/5 throughout Psych mental status grossly normal Mood & Affect: Negative for depressed or tearful Skin no rashes or lesions noted and no wounds MDM MDM MDM Narrative Medical decision making narrative: Differential diagnosis includes but not limited to gastroenteritis positional vertigo central vertigo dehydration electrolyte abnormality anemia White count 8.2 hemoglobin 12.9 BMP within normal limits except for glucose of 113. Normal LFTs lipase 45 urinalysis normal. Patient received IV fluids Z ofran and Antivert. She has had resolution of her symptoms. I believe the patient most likely experienced vertigo given the positional nature of it the room spinning sensation and nausea. I can write for Antivert and Zofran at home. Patient is comfortable with discharge will follow-up as needed return if worsening History & Record Review Discussion w/independent historian: Patient and Family Lab Data Attestation: I reviewed the patient's lab results. Labs: Laboratory Results - last 24 hr 03/27/24 03/27/24 07:41 08:20 WBC 8.2 RBC 4.31 Hgb 12.9 Hct 39.1 MCV 90.7 MCH 29.9 MCHC 33.0 RDW Std Deviation 44.4 H RDW Coeff of Joshua 13.2 Plt Count 242 MPV 9.9 Immature Gran % (Auto) 0.200 Neut % (Auto) 80.6 H Lymph % (Auto) 12.9 L Boundary % (Auto) 4.9 Eos % (Auto) 1.0 Baso % (Auto) 0.4 Absolute Neuts (auto) 6.6 Absolute Lymphs (auto) 1.06 Nucleated RBC % 0 Sodium 138 Potassium 4.1 Chloride 107 Carbon Dioxide 27.0 Anion Gap 4 L BUN 14 Creatinine 0.86 Estim Creat Clear Calc 42.12 Est GFR (MDRD) Af Amer 81 Est GFR (MDRD) Non-Af 67 BUN/Creatinine Ratio 16.2 Glucose 113 H Calcium 8.9 Total Bilirubin 0.30 Direct Bilirubin 0.12 AST 20 ALT 19 Alkaline Phosphatase 58 Troponin I High Sens 6 Total Protein 6.6 Albumin 3.4 Globulin 3.2 Lipase 45 Urine Color Yellow Urine Clarity Clear Urine pH 8.0 Ur Specific [place] 1.010 Urine Protein Negative Urine Glucose (UA) Normal Urine Ketones Negative Urine Occult Blood Negative Urine Nitrite Negative Urine Bilirubin Negative Urine Urobilinogen Normal Ur Leukocyte Esterase Negative Urine RBC 0 SEEN Urine WBC 0 SEEN Ur Squamous Epith Cells 0 SEEN Urine Bacteria 0 SEEN Urine Mucus 0 SEEN EKG Initial EKG: Attestation: I personally reviewed and interpreted this EKG as follows: Comments: Sinus rhythm with frequent PVCs in a bigeminy like pattern Discharge Plan Triage Chief Complaint: Dizziness ED Provider: Mika Desir Dx/Rx/DC Orders Clinical Impression: Vertigo, Vomiting Instructions: ED BPV Vertigo Prescriptions: New ondansetron 4 mg tablet,disintegrating 4 mg PO Q6H PRN PRN (Reason: Nausea) Qty: 15 0RF meclizine 25 mg tablet 25 mg PO TID PRN (Reason: dizziness) Qty: 10 0RF No Action Azo Cranberry 250 mg tablet,chewable 250 mg PO DAILY cholecalciferol (vitamin D3) 50 mcg (2,000 unit) tablet 50 mcg PO DAILY apple cider vinegar 600 mg capsule PO ascorbic acid (vitamin C) 500 MG tablet 500 mg PO DAILY@0800 calcium carbonate 500 MG tablet 500 mg PO DAILY@0800 ezetimibe [Zetia] 10 mg tablet 10 mg PO DAILY Qty: 30 12RF metoprolol succinate 25 mg tablet extended release 24 hr 25 mg PO DAILY Qty: 30 11RF Primary Care Provider: Mai Couch Referrals: Mai Couch MD [Primary Care Provider] - As Needed Print Language: [place]itanian Disposition Disposition: Home, Self Care
[2024-03-27] MEDS: Meclizine HCl 25 MG Tablet PO (07:51)
[2024-03-27] MEDS: 0.9% Normal Saline (1000mL) 1,000 ML 1000 ML IV (07:53)
[2024-03-27] MEDS: Ondansetron 4 MG/2 ML Vial IV (07:53)
[2024-03-27 07:54] LABS: Absolute Lymphocyte Count 1.06 X10^3/uL (0.83-4.51); Absolute Neutrophil Count 6.6 X10^3/uL (2.0-7.7); Basophil# 0.03 X10^3/uL; Basophil% 0.4 % (0-1); Eosinophil# 0.08 X10^3/uL; Hematocrit 39.1 % (37-47); Hemoglobin 12.9 g/dL (12.0-15.0); Lymphocyte # 1.06 X10^3/ul (0.83-4.51); Lymphocyte % 12.9 % (19-41); Mean Corpuscular Hgb 29.9 pg (27.0-32.0); Mean Corpuscular Volume 90.7 fL (81-99); Mean Platelet Vol. 9.9 fl (6.2-12.0); Monocyte% 4.9 % (0-10); NRBC Flagged by Analyzer 0 % (0-5); Neutrophil # 6.62 X10^3/uL (2.7-7.7); Neutrophil % 80.6 % (47-70); Platelet Count 242 K/mm3 (150-450); RBC Distribution Width CV 13.2 % (11.6-14.6); RBC Distribution Width SD 44.4 fl (35.1-43.9); Red Blood Count 4.31 M/mm3 (4.2-5.4); White Blood Count 8.2 K/mm3 (4.4-11.0)
[2024-03-27 08:11] LABS: AST(SGOT) 20 U/L (15-37); Alanine Aminotransfer ALT/SGPT 19 U/L (13-56); Albumin, Serum 3.4 g/dL (3.2-5.0); Alkaline Phosphatase 58 U/L (45-117); Anion Gap 4 (5-15); BUN 14 mg/dL (7-18); BUN/Creat Ratio 16.2 RATIO (10-20); Bilirubin, Direct 0.12 mg/dL (0.00-0.30); Calcium,Total 8.9 mg/dL (8.5-10.1); Chloride 107 mmol/L (98-107); Creatinine, Serum 0.86 mg/dL (0.55-1.02); EST Glomerular Filtration Rate 67 mL/min (>60); Est Glom Filt Rate - Afr Amer 81 mL/min (>60); Estimated Creatinine Clearance 42.12 ml/min; Globulin 3.2 g/dL (2.2-4.2); Glucose 113 mg/dL (74-106); Lipase 45 U/L (13-75); Potassium 4.1 mmol/L (3.5-5.1); Protein, Total 6.6 g/dL (6.4-8.2); Sodium Level 138 mmol/L (136-145); Troponin-I HS 6 pg/mL (3.0-54.0)
[2024-03-27 08:35] LABS: Bacteria 0 SEEN /hpf (None Seen); Mucous, Urine 0 SEEN /hpf (<or=2+); Red Blood Cells-Urine 0 SEEN /hpf (0-5); Squamous Epithelial Cells - UA 0 SEEN /hpf (5-10); White Blood Cells 0 SEEN /hpf (0-5)
[2024-03-27 08:48] LABS: Color, Urine Yellow (Yellow); Glucose, Dipstick Normal (Normal); Ketone-Dipstick Negative (Negative); Leukocyte Esterase-Dipstick Negative /ul (Negative); Nitrite-Dipstick Negative (Negative); Occult Blood-Urine Negative /ul (Negative); Protein-Dipstick Negative (Negative); Urine Bilirubin Dipstick Negative (Negative); Urine Clarity Clear (Clear); Urine Urobilinogen Normal (Normal)
[2024-03-27 09:00] VITALS: BP 143/78; PULSE 69; RESP 13; O2SAT 97
[2024-03-27 10:54] VITALS: BP 140/77; PULSE 64; RESP 14; TEMP 36.6; O2SAT 97
== END 2024-03-27 10:58 | disposition home or self-care (01) ==
PROVIDERS: Emergency Provider Emergency Medicine; PCP Family Medicine; Visit Provider Emergency Medicine
DX: R42 Dizziness and giddiness (principal); R11.2 Nausea with vomiting, unspecified
CPT/HCPCS: 80048; 80076; 81001; 83690; 84484; 85025; 93005; 96374; 99284; J7030; A4216; J2405

== ENCOUNTER → 2024-08-04 | Outpatient (CLI) | payer MEDICARE, SELFPAY ==
[2024-08-04 10:26] LABS: Absolute Lymphocyte Count 1.61 X10^3/uL (0.83-4.51); Absolute Neutrophil Count 4.3 X10^3/uL (2.0-7.7); Basophil# 0.03 X10^3/uL; Basophil% 0.5 % (0-1); Eosinophil# 0.13 X10^3/uL; Hematocrit 41.4 % (37-47); Hemoglobin 13.4 g/dL (12.0-15.0); Lymphocyte # 1.61 X10^3/ul (0.83-4.51); Lymphocyte % 24.2 % (19-41); Mean Corp Hgb Conc 32.4 g/dL (32-36); Mean Corpuscular Hgb 29.5 pg (27.0-32.0); Mean Platelet Vol. 9.8 fl (6.2-12.0); Monocyte# 0.56 X10^3/uL; Monocyte% 8.4 % (0-10); NRBC Flagged by Analyzer 0 % (0-5); Neutrophil # 4.31 X10^3/uL (2.7-7.7); Neutrophil % 64.6 % (47-70); Platelet Count 248 K/mm3 (150-450); RBC Distribution Width SD 42.8 fl (35.1-43.9); Red Blood Count 4.55 M/mm3 (4.2-5.4); White Blood Count 6.7 K/mm3 (4.4-11.0)
[2024-08-04 11:36] LABS: AST(SGOT) 21 U/L (15-37); Alanine Aminotransfer ALT/SGPT 25 U/L (13-56); Albumin, Serum 3.5 g/dL (3.2-5.0); Alkaline Phosphatase 58 U/L (45-117); Anion Gap 6 (5-15); BUN 16 mg/dL (7-18); BUN/Creat Ratio 21.2 RATIO (10-20); Calcium,Total 9.5 mg/dL (8.5-10.1); Chloride 103 mmol/L (98-107); Cholesterol 196 mg/dL (200); Creatinine, Serum 0.75 mg/dL (0.55-1.02); EST Glomerular Filtration Rate 78 mL/min (>60); Est Glom Filt Rate - Afr Amer 94 mL/min (>60); Globulin 3.4 g/dL (2.2-4.2); Glucose 90 mg/dL (74-106); High Density Lipoprotein 87 mg/dL; Magnesium 2.3 mg/dL (1.6-2.6); Potassium 4.4 mmol/L (3.5-5.1); Protein, Total 6.9 g/dL (6.4-8.2); Sodium Level 137 mmol/L (136-145); T4 Free Direct 0.87 ng/dL (0.76-1.46); Triglycerides 77 mg/dL; Very Low Density Lipoprotein 15 mg/dL (5-40)
== END | disposition home or self-care (01) ==
LOC: LAB 10:03
PROVIDERS: PCP Family Medicine; Referring Provider Nurse Practitioner Family; Visit Provider Nurse Practitioner Family
DX: R00.2 Palpitations (principal); I49.3 Ventricular premature depolarization; I49.1 Atrial premature depolarization; E78.5 Hyperlipidemia, unspecified
CPT/HCPCS: 36415; 80053; 80061; 83735; 84439; 84443; 85025

== ENCOUNTER → 2024-08-08 | Outpatient (CLI) | payer MEDICARE, SELFPAY | END | disposition home or self-care (01) | LOC: PSN 07:00 | PROVIDERS: PCP Family Medicine; Referring Provider Nurse Practitioner Family; Visit Provider Nurse Practitioner Family | DX: R00.2 Palpitations (principal); I49.3 Ventricular premature depolarization; I49.1 Atrial premature depolarization | CPT/HCPCS: 93225; 93226 ==

== ENCOUNTER → 2024-08-13 | Outpatient (CLI) | payer MEDICARE, SELFPAY ==
--- NOTE | 2024-08-13 12:03 | STRESSREP ---
Stress Test Report Pharmacologic myocardial perfusion stress test. 84-year-old lady with a history of premature ventricular complexes Resting EKG demonstrates sinus rhythm with a rate of 68 bpm. Frequent premature ventricular complexes are noted. Resting blood pressure is 122/74 mmHg. 0.4 mg of regadenoson was infused per usual protocol followed by rapid intravenous saline flush injection. Continuous EKG monitoring was performed. The maximum heart rate was 90 bpm which was 65% of max impacted heart rate the maximum workload was 1 metabolic equivalent. At rest there were no ST or T wave changes noted to suggest ischemia and at peak infusion nonspecific ST changes were noted which did not meet the criteria for ischemia. No clinical angina is noted. The final blood pressure was 112/72 mmHg. Myocardial perfusion protocol. 11.3 mCi of technetium 99m sestamibi was injected at rest. 0.4 mg of regadenoson was infused per usual protocol. At peak infusion 33.8 mCi of technetium 99m sestamibi was injected stress images were obtained stress and rest images were reconstructed and compared in the short axis vertical long and horizontal long axis. Perfusion SPECT analysis: Review of the stress images demonstrate normal uptake of tracer noted in all areas of the myocardium. The resting images similar demonstrated normal uptake of tracer noted in all areas of the myocardium. No areas of reversibility are noted to suggest ischemia and no previous infarct is noted. Conclusion: Normal pharmacologic myocardial perfusion stress test.
== END | disposition home or self-care (01) ==
LOC: CVS 06:46
PROVIDERS: PCP Family Medicine; Referring Provider Nurse Practitioner Family; Visit Provider Nurse Practitioner Family
DX: I49.3 Ventricular premature depolarization (principal); R94.31 Abnormal electrocardiogram [ECG] [EKG]
CPT/HCPCS: 78452; 93017; A9500; A4216; J2785